=== PATIENT | female | born 1965 | race Caucasian/White ===

== ENCOUNTER 2016-10-26 21:48 | Emergency (ER) | payer MEDICAID ==
[2016-10-26] MEDS ORDERED: ORPHENADRINE 60 MG/2 ML AMP ONE (22:35)
[2016-10-26] MEDS ORDERED: MORPHINE 4 MG/ML SYR ONE (22:36)
[2016-10-26] MEDS ORDERED: ONDANSETRON ODT 4 MG TAB ONE (22:52)
[2016-10-27] MEDS ORDERED: Ibuprofen 200 MG TAB ONE (00:08)
[2016-10-27] MEDS ORDERED: DIAZEPAM 5 MG TAB ONE (00:10)
== END 2016-10-27 00:30 | disposition home or self-care (01) ==
LOC: FASTR 21:48
DX: M54.12 Radiculopathy, cervical region (principal); S16.1XXA Strain of muscle, fascia and tendon at neck level, initial encounter; S46.811A Strain of other muscles, fascia and tendons at shoulder and upper arm level, right arm, initial encounter; Z87.891 Personal history of nicotine dependence
CPT/HCPCS: 72050; 96372